=== PATIENT | male | born 1955 | race Caucasian/White ===

== ENCOUNTER 2019-06-18 14:39 | Emergency (ER) | payer BC, SELFPAY ==
[2019-06-18 14:43] VITALS: BP 138/81; PULSE 79; RESP 16; TEMP 36.4; O2SAT 99; BMI 27.9
--- NOTE | 2019-06-18 15:00 | RAD_ITS ---
STUDY: X-RAY - LEFT HAND, ATTENTION 3rd FINGER REASON FOR EXAM: Male, 63 years old. STUBBED 3RD DIGIT TECHNIQUE: 3 view(s) of the finger were obtained. COMPARISON: None. FINDINGS: Normal metacarpal head. Normal metacarpophalangeal joint. Normal proximal phalanx. Normal middle phalanx. Normal distal phalanx. Normal proximal interphalangeal joint. Flexion contracture of distal interphalangeal joint. RAD/Finger(s) Min 2 Views IMPRESSION: Flexion contracture of the third PIP joint without demonstrated fracture. Electronically Signed: Gokul Lockett MD ([facility]) at 15:16 EST , Service support ,
--- NOTE | 2019-06-18 15:08 | ED.VIS.UPPEX ---
History of Present Illness Chief Complaint: Upper Extremity Injury Informant: Patient Occurred: Today Mechanism/Context: Injury Onset: Today Context: Sudden Onset Narrative: Patient is a 63-year-old male with history of mitral valve prolapse and hypertension presenting with injury to his left middle finger. He states he was scraping at grout with his left hand when he jammed his left finger. His suddenly had pain at his left DIP and inability to fully extend his distal left finger. This happened about 30 minutes prior to arrival. He did not attempt to pull on it for take anything for pain. He came to the emergency room for further evaluation. Past Medical History - Allergies and Home Meds Allergies/Adverse Reactions: Allergies No Known Allergies Allergy (Verified 06/18/19 14:41) Primary Care Physician: Orlando Willard DO [Primary Care Provider] - Smoking Status: Never smoker Review of Systems General: Denies: Chills, Fever, Sweats Eyes: Denies: Visual changes - bilaterally, Diplopia ENT: Denies: Rhinorrhea, Sore throat Cardiovascular: Denies: Chest pain, Palpitations Respiratory: Denies: Dyspnea, Cough, Dyspnea on exertion Gastrointestinal: Denies: Abdominal pain, Nausea, Vomiting, Diarrhea, Melena, Hematochezia Genitourinary: Denies: Dysuria, Hematuria, Frequency Musculoskeletal: Reports: Swelling, Extremity Pain - left middle finger . Denies: Back pain Skin: Denies: Rash, Wounds Neurological: Denies: Headache, Weakness, Parasthesia, Numbness Physical Exam Vital Signs/Narrative: Vital Signs Temp Pulse Resp BP Pulse Ox 06/18/19 14:43 97.6 F L 79 16 138/81 H 99 Inital Vital Signs reviewed: Yes Left Wrist: Negative for: Deformity, Edema, Limited ROM Left Hand: Negative for: Deformity, Edema, Limited ROM Left Finger: Deformity, Limited ROM, - - Patient with left middle finger is held in flexion at the distal phalanges and patient is unable to extend it. Flexion extension intact at the PIP joint. Patient does have some associated tenderness of the distal phalanges and a small amount of bruising forming. General: Well nourished, Well developed Head: Normocephalic, Atraumatic Eyes: Perrl, EOMI ENT: No Trauma, Moist Mucous Membranes Neck: Nontender, Full ROM Cardiovascular: Regular rate, Regular rhythm, No murmurs Respiratory: No distress, CTA bilaterally, Chest nontender Abdomen: Soft, Nontender Back: Nontender Skin: Normal color, No rash Neurological: Alert, Oriented x3, Cranial nerves II-XII grossly intact, Normal Strength, Normal Sensation Psychological: Normal affect Diagnostic/Tx/Re-eval Clinical Impression(s) from Imaging Studies Finger X-Ray 06/18/19 15:00 IMPRESSION: Flexion contracture of the third PIP joint without demonstrated fracture. Electronically Signed: Gokul Lockett MD ([facility]) at 15:16 EST , Service support , - Medical Decision Making Patient presents with an injury and deformity of his left middle finger. Is consistent with a mallet finger injury. X-ray does not show any acute dislocation or fracture. Patient is placed in a splint to hold the finger in extension. He is counseled heavily on the importance of keeping splint on at all times. He will follow-up with Dr. Adams in 1 week. Patient declined pain medication ER. He is counseled to take ibuprofen and Tylenol as needed for pain at home. Patient is counseled on signs and symptoms requiring return to the emergency room. Patient verbalizes agreement and understand this plan. Patient discharged home in stable and improved condition. ED Disposition - Plan for ED Patient: Disposition: Home or Assisted Living Diagnosis: Mallet deformity of left middle finger Instructions: Mallet Finger Referrals: Orlando Willard DO [Primary Care Provider] - Michelle Adams DO [STAFF PHYSICIAN] - Additional Instructions: Please follow-up with orthopedics in 1 week. Call tomorrow to make an appointment. It is very important that you keep your splint on at all times and limit any bending of affected finger so that the tendon might heal.
== END 2019-06-18 16:05 | disposition home or self-care (01) ==
PROVIDERS: Emergency Provider Emergency Medicine; Family Provider Preventive Medicine Occupational Medicine; PCP Preventive Medicine Occupational Medicine
DX: M20.012 Mallet finger of left finger(s) (principal); I10 Essential (primary) hypertension; I34.1 Nonrheumatic mitral (valve) prolapse; Z79.899 Other long term (current) drug therapy
CPT/HCPCS: 73140; 99282

== ENCOUNTER → 2023-10-30 | Outpatient (CLI) | payer MEDICARE, SELFPAY ==
[2023-10-30 10:52] LABS: PSA,Total - Annual Screen 2.93 ng/mL (0.00-4.00)
== END | disposition home or self-care (01) ==
LOC: LAB 08:59
PROVIDERS: PCP Preventive Medicine Occupational Medicine; Visit Provider Urology
DX: Z12.5 Encounter for screening for malignant neoplasm of prostate (principal)
CPT/HCPCS: 36415; 84153; G0103